=== PATIENT | female | born 1985 | race African-American/Black ===

== ENCOUNTER → 2021-12-21 | Day surgery (SDC) | payer OTHER | END | disposition home or self-care (01) | LOC: JRADUS-SUR 09:40 | PROVIDERS: ATTEND Obstetrics & Gynecology | DX: Z53.8 Procedure and treatment not carried out for other reasons (principal) | CPT/HCPCS: 36415; 72170-TC-FY; 84702 ==

== ENCOUNTER 2021-12-22 05:39 | Day surgery (SDC) | payer OTHER ==
[2021-12-21 11:21] VITALS: BMI 26.4
[2021-12-22] MEDS ORDERED: LIDOCAINE HCL 1%, 10 MG/ML (20ML VIAL) ONE (07:15)
[2021-12-22] MEDS ORDERED: BUPIVACAINE HCL/PF 0.5% (5MG/ML) 10 ML VIAL ONE (07:15)
[2021-12-22] MEDS ORDERED: DEXAMETHASONE SOD PHOSPHATE 4 MG/1 ML VIAL ONE (07:15)
[2021-12-22] MEDS ORDERED: PROPOFOL 20 ML ONE ×6 (07:33→09:46)
[2021-12-22] MEDS ORDERED: SUCCINYLCHOLINE CHLORIDE 200 MG/10 ML SYRINGE ONE ×2 (07:33→07:45)
[2021-12-22] MEDS ORDERED: MIDAZOLAM HCL 2 MG/2 ML SINGLE DOSE VIAL ONE (08:44)
[2021-12-22] MEDS ORDERED: KETAMINE HCL 200 MG/20 ML VIAL ONE (08:44)
[2021-12-22] MEDS ORDERED: ceFAZolin SODIUM 1 GM VIAL IVPB ONE (09:38)
[2021-12-22] MEDS ORDERED: LIDOCAINE HCL 1%, 10 MG/ML (20ML VIAL) NR ONE ×3 (09:45)
[2021-12-22] MEDS ORDERED: BUPIVACAINE HCL/PF 0.5% (5MG/ML) 10 ML VIAL NR ONE ×2 (09:57)
[2021-12-22] MEDS ORDERED: DEXAMETHASONE SOD PHOSPHATE 4 MG/1 ML VIAL IVPUSH ONE (09:58)
[2021-12-22 12:16] VITALS: TEMP 98.8
[2021-12-22 12:30] VITALS: BP 130/75; PULSE 72
== END 2021-12-22 11:27 | disposition home or self-care (01) ==
LOC: JASU-SURG 05:39
PROVIDERS: ATTEND Podiatrist Foot Surgery
PROC: 0SRQ0JZ Replacement of Left Toe Phalangeal Joint with Synthetic Substitute, Open Approach (ICD-10-PCS; principal; 2021-12-22 09:00)
DX: M20.42 Other hammer toe(s) (acquired), left foot (principal)
CPT/HCPCS: 73630-TC-LT; 88304-TC; 88311-TC

== ENCOUNTER → 2022-01-15 | Day surgery (SDC) | payer OTHER | END | disposition home or self-care (01) | LOC: JRADUS-SUR 08:58 | PROVIDERS: ATTEND Obstetrics & Gynecology | PROC: BU081ZZ Plain Radiography of Uterus and Fallopian Tubes using Low Osmolar Contrast (ICD-10-PCS; principal; 2022-01-15) | DX: Z31.41 Encounter for fertility testing (principal) | CPT/HCPCS: 36415; 58340; 74740-TC-FY; 76000-TC-FY; 84702 ==

== ENCOUNTER 2025-01-16 12:43 | Emergency (ER) | payer OTHER ==
[2025-01-16 13:11] VITALS: BP 134/86; PULSE 88; RESP 18; TEMP 98.4; BMI 30.9
[2025-01-16] MEDS: KETOROLAC TROMETHAMINE 30 MG/1 ML VIAL IM ONE (15:05)
[2025-01-16] MEDS ORDERED: KETOROLAC TROMETHAMINE 30 MG/1 ML VIAL ONE (15:06)
== END 2025-01-16 16:43 | disposition home or self-care (01) ==
LOC: JERFT 12:43
PROC: 3E0233Z Introduction of Anti-inflammatory into Muscle, Percutaneous Approach (ICD-10-PCS; principal; 2025-01-16)
DX: S29.012A Strain of muscle and tendon of back wall of thorax, initial encounter (principal); X50.1XXA Overexertion from prolonged static or awkward postures, initial encounter; Y93.G1 Activity, food preparation and clean up
CPT/HCPCS: 71046-TC-FY; 84703; 99284-25